=== PATIENT | male | born 1985 | race Caucasian/White ===

== ENCOUNTER 2023-12-25 10:18 | Emergency (ER) | payer OTHER ==
[~2023-12-25] VITALS: Ht 175.3 cm; Wt 79.4 kg
[2023-12-25 10:47] VITALS: BP 124/83; PULSE 88; RESP 18; TEMP 97.5; O2SAT 97
[2023-12-25] MEDS: KETOROLAC 30 MG/ML VIAL IM ONE (12:40)
[2023-12-25] MEDS ORDERED: IBUP-2213 PO (12:50)
== END 2023-12-25 12:58 | disposition home or self-care (01) ==
LOC: MED 10:18
DX: S83.8X2A Sprain of other specified parts of left knee, initial encounter (principal); Z79.899 Other long term (current) drug therapy; X58.XXXA Exposure to other specified factors, initial encounter; Y93.89 Activity, other specified; Y92.89 Other specified places as the place of occurrence of the external cause; Y99.8 Other external cause status
CPT/HCPCS: 29505; 73562; 96372; 99283; J1885